=== PATIENT | female | born 1965 | race Caucasian/White ===

== ENCOUNTER 2017-12-11 15:07 | Emergency (ER) | payer OTHER ==
[~2017-12-11] VITALS: Ht 167.6 cm; Wt 115.3 kg
[2017-12-11 15:53] LABS: BASOPHILS # (AUTO) 0.03 x10^3/uL (0-0.1); BASOPHILS % (AUTO) 1 % (0-1); EOSINOPHILS % (AUTO) 7 % (1-7); LYMPHOCYTES # (AUTO) 1.73 x10^3/uL (1-3.4); LYMPHOCYTES % (AUTO) 38 % (22-44); MD NO; MEAN CORPUSCULAR HEMOGLOBIN 32.2 pg (27.0-34.8); MEAN CORPUSCULAR HGB CONC 34.5 g/dL (32.4-35.8); MEAN CORPUSCULAR VOLUME 93.4 fL (80-100); MEAN PLATELET VOLUME 8.8 fL (7.4-10.4); MONOCYTES # (AUTO) 0.42 x10^3/uL (0.2-0.8); MONOCYTES % (AUTO) 9 % (2-9); NEUTROPHILS # (AUTO) 2.02 x10^3/uL (1.8-6.8); NEUTROPHILS % (AUTO) 45 % (42-75); PLATELET COUNT 209 x10^3/uL (130-400); RED BLOOD COUNT 4.85 x10^6/uL (3.82-5.3); RED CELL DISTRIBUTION WIDTH 12.7 % (9.6-15.2)
[2017-12-11 16:05] LABS: ALBUMIN 4.2 g/dL (3.4-5.0); ANION GAP 9 mmol/L (5-15); CHLORIDE 111 mmol/L (98-107); CREATININE 0.83 mg/dL (0.55-1.02)
[2017-12-11] MEDS ORDERED: MORPHINE SULFATE 4 MG/ML, 1ML IVPush PRN (16:30)
[2017-12-11] MEDS ORDERED: ONDANSETRON ODT 4 MG PO ONE (16:30)
[2017-12-11] MEDS ORDERED: SODIUM CHLORIDE FLUSH 10ML SYR IVF ONE ×2 (16:30→17:00)
[2017-12-11] MEDS ORDERED: ONDANSETRON ODT 4 MG ONE (16:33)
[2017-12-11] MEDS ORDERED: MORPHINE SULFATE 4 MG/ML, 1ML ONE (16:33)
[2017-12-11 16:41] LABS: CULTURE INDICATED? NO; MICROSCOPIC AUTO
[2017-12-11 16:48] LABS: HCG UR SG 1.011 (1.003-1.030)
[2017-12-11 17:15] VITALS: BP 163/98
== END 2017-12-11 17:54 | disposition home or self-care (01) ==
LOC: ED 17:27
DX: N13.2 Hydronephrosis with renal and ureteral calculous obstruction (principal); Z87.891 Personal history of nicotine dependence; I10 Essential (primary) hypertension
CPT/HCPCS: 36415; 80048; 81001; 81025; 82040; 85025; 96374; 99284; Q0162

== ENCOUNTER → 2017-12-11 | Outpatient (CLI) | payer OTHER | END | disposition home or self-care (01) | LOC: RAD 10:06 | PROVIDERS: ATTEND Family Medicine | DX: N13.30 Unspecified hydronephrosis (principal) | CPT/HCPCS: 76770 ==

== ENCOUNTER 2018-08-30 14:20 | Emergency (ER) | payer OTHER ==
[~2018-08-30] VITALS: Ht 167.6 cm; Wt 114.2 kg
[2018-08-30 14:24] VITALS: BP 176/128
--- NOTE | 2018-08-30 14:43 | NUR ---
PT IN BED AT THIS TIME. UA COLLECTED AND SENT.
[2018-08-30] MEDS ORDERED: KETOROLAC 60 MG/2 ML ONE (14:55)
[2018-08-30 14:58] LABS: MICROSCOPIC INDICATED
[2018-08-30] MEDS ORDERED: KETOROLAC 30 MG/1 ML IM ONE (15:00)
[2018-08-30 15:02] LABS: CULTURE INDICATED? YES
[2018-08-30] MEDS ORDERED: CEFTRIAXONE 1,000 MG ONE (15:17)
[2018-08-30] MEDS ORDERED: CEFTRIAXONE 1,000 MG IM ONE (15:30)
== END 2018-08-30 15:44 | disposition home or self-care (01) ==
LOC: ED 15:41
DX: N30.01 Acute cystitis with hematuria (principal); I10 Essential (primary) hypertension
CPT/HCPCS: 81001; 87077; 87086; 96372; 99283; J0696; J1885; 87186